=== PATIENT | male | born 1945 | race Caucasian/White ===

== ENCOUNTER 2022-09-30 20:36 | Emergency (ER) | payer MEDICARE, OTHER | END 2022-09-30 22:07 | disposition home or self-care (01) | LOC: JP.ED 20:36 | DX: M77.11 Lateral epicondylitis, right elbow (principal); F17.210 Nicotine dependence, cigarettes, uncomplicated; I25.2 Old myocardial infarction; I10 Essential (primary) hypertension; E78.00 Pure hypercholesterolemia, unspecified; Z79.899 Other long term (current) drug therapy | CPT/HCPCS: 99283 ==